=== PATIENT | male | born 1990 | race Caucasian/White ===

== ENCOUNTER → 2016-12-10 | Outpatient (CLI) | payer OTHER ==
--- NOTE | 2016-12-10 11:12 | DIAGNOSTIC IMAGING REPORT ---
PROCEDURE: MR LOWER EXT JOINT WO CONT-RT INDICATION: RT KNEE PAIN AND WEAKNESS TECHNIQUE: T1 and STIR sagittal, axial, coronal and coronal-oblique images. COMPARISON: None. FINDINGS: Cruciate and collateral ligaments are normal. Normal menisci. Normal articular cartilage. Normal quadriceps and patellar tendons. Mild chondromalacia patella. No effusion or popliteal cyst. Tiny bone islands of the medial tibial plateau and lateral femoral condyle. IMPRESSION: 1. Mild chondromalacia patella.
== END ==
LOC: MRI SRH 08:41
DX: M22.41 Chondromalacia patellae, right knee (principal)